=== PATIENT | female | born 1990 | race Asian ===

== ENCOUNTER 2021-06-22 11:20 | Emergency (ER) | payer MEDICAID ==
[2021-06-22] MEDS ORDERED: Diphtheria,Pertussis(Acell),Tetanus Vaccine 0.5 ML Syringe IM ONE (11:53)
--- NOTE | 2021-06-22 12:00 | EDM.PDOC ---
ED HPI GENERAL MEDICAL PROBLEM - General Stated Complaint: LACERATION L INDEX Time Seen by Provider: 06/22/21 11:55 Source of Information: Reports: Patient History Limitations: Reports: No Limitations - History of Present Illness INITIAL COMMENTS - FREE TEXT/NARRATIVE: Patient presented to the ED because of a left index finger laceration. She accidentally cut her left index finger and sustained a 1.5 cm laceration. She is able to extend and flex her finger without any difficulty. - Related Data Allergies Allergy/AdvReac Type Severity Reaction Status Date / Time No Known Allergies Allergy Verified 06/16/18 13:37 Home Meds: Home Meds Calcium Carbonate [Calcium] 1 tab PO DAILY 06/13/18 [History] Mv-Mn/Iron/Folic Acid/Herb 190 [Vitamin D3 Complete Caplet] 1 tab PO DAILY 06/13/18 [History] Vits #93/Iron Fum/FA [ Formula Tablet] 1 each PO DAILY 06/13/18 [History] Acetaminophen/HYDROcodone [HYDROcodone-Acetaminophen 5-325 MG *] 1 tab PO Q4H PRN #10 tablet 06/22/18 [Rx] Ibuprofen [Motrin] 600 mg PO Q6H #20 tablet 06/22/18 [Rx] Past Medical History - Past Health History Medical/Surgical History: Denies Medical/Surgical History 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 Endocrine/Metabolic History: Reports: Diabetes, Gestational Hematologic History: Reports: Iron Deficiency Social & Family History - Family History Family Medical History: No Pertinent Family History - Caffeine Use Caffeine Use: Reports: None ED ROS GENERAL - Review of Systems Review Of Systems: See Below Constitutional: Reports: No Symptoms HEENT: Reports: No Symptoms Respiratory: Reports: No Symptoms Cardiovascular: Reports: No Symptoms Endocrine: Reports: No Symptoms GI/Abdominal: Reports: No Symptoms : Reports: No Symptoms Musculoskeletal: Reports: No Symptoms Skin: Reports: Wound Neurological: Reports: No Symptoms Psychiatric: Reports: No Symptoms ED EXAM, GENERAL - Physical Exam Exam: See Below Exam Limited By: No Limitations General Appearance: Alert, No Apparent Distress Eye Exam: Bilateral Eye: PERRL Ears: Normal External Exam, Normal Canal, Normal TMs Nose: Normal Inspection, Normal Mucosa, No Blood Throat/Mouth: Normal Inspection, Normal Lips, Normal Teeth, Normal Gums, Normal Oropharynx, Normal Voice Head: Atraumatic, Normocephalic Neck: Normal Inspection, Supple, Non-Tender, Full Range of Motion Respiratory/Chest: No Respiratory Distress, Lungs Clear, Normal Breath Sounds, No Accessory Muscle Use, Chest Non-Tender Cardiovascular: Normal Peripheral Pulses, Regular Rate, Rhythm, No Edema GI/Abdominal: Normal Bowel Sounds, Soft, Non-Tender, No Organomegaly, No Distention, No Abnormal Bruit Back Exam: Normal Inspection, Full Range of Motion Extremities: Normal Inspection, Normal Range of Motion, Non-Tender, No Pedal Edema, Normal Capillary Refill ED GENERAL MEDICAL PROCEDURES - Laceration/Wound Repair Left Digit - 2nd (Index) Lac/wound length in cm: 1.5 Appearance: Superficial, Clean Distal NVT: Neuro & Vascular Intact Skin Prep: Chlorhexidine (Hibiciens) Closed with: Dermabond Course - Vital Signs Text/Narrative:: Tdap - Orders/Labs/Meds Meds: Medications Discontinued Medications Generic Name Dose Route Start Last Admin Trade Name Freq PRN Reason Stop Dose Admin Diphtheria/Tetanus/Acell Pertussis 0.5 ml 06/22/21 11:53 06/22/21 11:57 Diphtheria,Pertussis(Acell),Tetanus Vaccine 0.5 Ml Syringe IM 06/22/21 11:54 0.5 ml .ONCE ONE Administration Departure - Departure Time of Disposition: 12:00 Disposition: Home, Self-Care 01 Condition: Good Clinical Impression: Laceration - Discharge Information Instructions: Laceration Care, Adult, [id number] Referrals: Chano Sultana MD [Primary Care Provider] - Additional Instructions: Please read discharge instructions on laceration and wound care Keep the wound dry for 3-5 days No need to apply an antibiotic ointment, the glue is medicated Do not cover your wound if your inside the house Follow up as needed
== END 2021-06-22 12:11 | disposition home or self-care (01) ==
LOC: FB.ED 11:20
DX: S61.211A Laceration without foreign body of left index finger without damage to nail, initial encounter (principal); Z23 Encounter for immunization; W26.8XXA Contact with other sharp object(s), not elsewhere classified, initial encounter
CPT/HCPCS: 12001; 90471; 90715; 99282-25

== ENCOUNTER 2023-10-08 20:00 | Emergency (ER) | payer MEDICAID ==
[2023-10-08] MEDS ORDERED: Acetaminophen/oxyCODONE 325-5 MG Tab PO ONE (20:01)
[2023-10-08 20:58] LABS: INFLUENZA A NAA NEGATIVE (NEGATIVE); INFLUENZA B NAA NEGATIVE (NEGATIVE); RESPIRATORY SYNCYTIAL VIR NAA NEGATIVE (NEGATIVE)
[2023-10-08 21:01] LABS: CORONAVIRUS COVID-19 NAA NEGATIVE (NEGATIVE)
[2023-10-08] MEDS: Alum Hydroxide/Mag Hydroxide 15 ML, Lidocaine 2% 15 ML PO ONE (21:11)
[2023-10-08] MEDS: Alum Hydroxide/Mag Hydroxide 30 ML, Lidocaine 2% 30 ML PO ONE (21:18)
[2023-10-08] MEDS: Pantoprazole 40 MG Tab.CR PO STA (21:55)
[2023-10-08] MEDS: Acetaminophen/oxyCODONE 325-5 MG Tab PO STA (21:55)
== END 2023-10-08 22:19 | disposition home or self-care (01) ==
LOC: FB.ED 20:00
DX: K21.9 Gastro-esophageal reflux disease without esophagitis (principal); K29.70 Gastritis, unspecified, without bleeding; Z79.899 Other long term (current) drug therapy
CPT/HCPCS: 0241U; 71045; 87651-QW; 99284; A9270-GY

== ENCOUNTER 2024-08-13 13:38 | Emergency (ER) | payer MEDICAID ==
[2024-08-13] MEDS: Ketorolac 30 MG/ML SDV IVPUSH ONE (14:10)
== END 2024-08-13 15:36 | disposition home or self-care (01) ==
LOC: FB.ED 13:38
DX: S30.0XXA Contusion of lower back and pelvis, initial encounter (principal); Z79.899 Other long term (current) drug therapy; W00.0XXA Fall on same level due to ice and snow, initial encounter
CPT/HCPCS: 72170; 96374; 99283; J1885